=== PATIENT | female | born 1950 | race Caucasian/White ===

== ENCOUNTER 2023-08-02 11:20 | Emergency (ER) | payer MEDICARE ==
[~2023-08-02] VITALS: Ht 157.4 cm; Wt 63.5 kg
== END 2023-08-02 14:49 | disposition left against medical advice (07) ==
LOC: ED 11:20
DX: R05.9 Cough, unspecified (principal); R09.3 Abnormal sputum; R19.7 Diarrhea, unspecified; Z53.21 Procedure and treatment not carried out due to patient leaving prior to being seen by health care provider

== ENCOUNTER 2023-08-02 18:18 | Emergency (ER) | payer MEDICARE | END 2023-08-02 20:54 | disposition left against medical advice (07) | LOC: ED 18:18 | DX: R05.9 Cough, unspecified (principal); R52 Pain, unspecified; Z53.21 Procedure and treatment not carried out due to patient leaving prior to being seen by health care provider ==

== ENCOUNTER 2023-08-06 10:27 | Emergency (ER) | payer MEDICARE ==
[~2023-08-06] VITALS: Ht 154.9 cm; Wt 63.5 kg
[2023-08-06] MEDS ORDERED: AVPAK AZITHROM250 M1 PO (12:32)
== END 2023-08-06 12:04 | disposition home or self-care (01) ==
LOC: ED 10:27
DX: J40 Bronchitis, not specified as acute or chronic (principal); M79.10 Myalgia, unspecified site; Z88.5 Allergy status to narcotic agent; Z98.890 Other specified postprocedural states; M19.90 Unspecified osteoarthritis, unspecified site; Z20.822 Contact with and (suspected) exposure to COVID-19

== ENCOUNTER 2023-11-19 12:42 | Inpatient (IN) | payer MEDICARE ==
[2023-11-19] VITALS (9 sets, daily range): BP systolic 89–118; BP diastolic 47–71
[~2023-11-19] VITALS: Ht 154.9 cm; Wt 64.9 kg
[~2023-11-19 12:42] MED LIST: AVPAK AZITHROM250 M1 PO
[2023-11-19] MEDS ORDERED: SODIUM CHLORIDE 0.9% 1,000 ML IV ONE ×2 (13:20→20:35)
[2023-11-19] MEDS ORDERED: Ondansetron Hydrochloride 4 MG/2 ML VIAL IV ONE (13:20)
[2023-11-19 13:29] LABS: BASO % 0.3 % (0.0-1.0); EOS # 0.1 10*3/uL (0.0-0.4); EOS % 0.8 % (1.0-4.0); HEMATOCRIT 38.6 % (37.0-47.0); LYMPH % 22.9 % (27.0-41.0); MEAN CORPUSCULAR HGB 30.2 pg (27.0-31.0); MEAN CORPUSCULAR HGB CONC 33.2 g/dl (33.0-37.0); MEAN PLATELET VOLUME 9.9 fl (9.6-12.3); MONO # 0.7 10*3/uL (0.1-1.0); MONO % 4.9 % (3.0-9.0); NEUT # 9.4 10*3/uL (2.3-7.9); NEUT % 70.9 % (47.0-73.0); PLATELET COUNT AUTOMATED 250 10*3/uL (130-400); RED BLOOD COUNT 4.24 10*6/uL (4.10-5.10); RED CELL DISTRI WIDTH 14.6 % (0-14.5); WHITE BLOOD COUNT 13.3 10*3/uL (4.8-10.8)
[2023-11-19 13:50] LABS: ALKALINE PHOSPHATASE 92 U/L (46-116); BUN 10 mg/dl (9-23); CHLORIDE 103 mmol/L (98-107); LIPASE 38 U/L (12-53); POTASSIUM 2.6 mmol/L (3.4-5.1); SGPT/ALT 9 U/L (5-49); TOTAL PROTEIN 6.5 gm/dL (6.0-8.0)
[2023-11-19 13:55] LABS: BILIRUBIN Negative (Negative); BLOOD Negative (Negative); CLARITY Clear (Clear); COLOR Yellow (Yellow); GLUCOSE Negative (Negative); KETONE Negative (Negative); LEUKO ESTERASE Negative (Negative); NITRITE Negative (Negative); PH 6.5 (4.5-8.0); UROBILINOGEN 0.2 E.U./dl (0.0-1.0)
[2023-11-19 14:02] LABS: BACTERIA TRACE; WBC 0-2 wbc/hpf (0-5)
[2023-11-19] MEDS ORDERED: POTASSIUM CHLORIDE 20 MEQ TAB PO ONE (14:25)
[2023-11-19] MEDS ORDERED: Piperacillin Sodium/Tazobact 100 ML IV ONE (16:05)
[2023-11-19] MEDS ORDERED: HYDROmorphONE Hydrochloride 0.5 MG/0.5 ML SYRINGE IV ONE (16:05)
[2023-11-19] MEDS ORDERED: SODIUM CHLORIDE 0.9% 1,000 ML IV SCH (16:15)
[2023-11-19] MEDS ORDERED: Ondansetron Hydrochloride 4 MG/2 ML VIAL IV PRN (16:40)
[2023-11-19] MEDS ORDERED: ACETAMINOPHEN 650 MG SUPP R PRN (16:40)
[2023-11-19] MEDS ORDERED: MORPHINE Sulfate 2 MG/ML SYR IV PRN (16:40)
[2023-11-19] MEDS ORDERED: BISACODYL 10 MG SUPP R PRN (16:40)
[2023-11-19] MEDS ORDERED: POTASSIUM CHLORIDE IN WATER 100 ML IV SCH (20:00)
[2023-11-19] MEDS ORDERED: HEPARIN SODIUM 5,000 UNIT/ML VIAL SC SCH (22:00)
[2023-11-19] MEDS ORDERED: Piperacillin Sodium/Tazobact 50 ML IV SCH (22:00)
[2023-11-20 06:49] LABS: BASO # 0.1 10*3/uL (0.0-0.1); BASO % 0.5 % (0.0-1.0); EOS # 0.2 10*3/uL (0.0-0.4); EOS % 1.7 % (1.0-4.0); HEMATOCRIT 35.2 % (37.0-47.0); LYMPH # 2.9 10*3/uL (1.3-4.4); MEAN CELL VOLUME 91.2 fl (81.0-99.0); MEAN CORPUSCULAR HGB 30.3 pg (27.0-31.0); MEAN CORPUSCULAR HGB CONC 33.2 g/dl (33.0-37.0); MONO # 0.4 10*3/uL (0.1-1.0); MONO % 4.4 % (3.0-9.0); NEUT # 6.4 10*3/uL (2.3-7.9); PLATELET COUNT AUTOMATED 235 10*3/uL (130-400); RED BLOOD COUNT 3.86 10*6/uL (4.10-5.10); WHITE BLOOD COUNT 9.9 10*3/uL (4.8-10.8)
[2023-11-20 08:00] VITALS: BP 111/54
[2023-11-20 08:22] LABS: ALKALINE PHOSPHATASE 79 U/L (46-116); BUN 7 mg/dl (9-23); CHLORIDE 110 mmol/L (98-107); CHOLESTEROL 98 mg/dL (<200); LDL CHOLESTEROL 37 mg/dL (9-159); POTASSIUM 3.4 mmol/L (3.4-5.1); TRIGLYCERIDES 123 mg/dl (<150)
[2023-11-20 08:23] LABS: SGPT/ALT < 7 U/L (5-49)
[2023-11-20] MEDS ORDERED: Enoxaparin Sodium 40 MG/0.4 ML SYR SC SCH (10:00)
[2023-11-20 12:00] VITALS: BP 116/61
[2023-11-20] MEDS ORDERED: Ketorolac Tromethamine 15 MG/ML VIAL IV SCH (12:00)
[2023-11-20 16:00] VITALS: BP 114/48
[2023-11-20 20:00] VITALS: BP 111/71
[2023-11-20] MEDS ORDERED: EFFEXOR XR75 M1 PO (20:31)
[2023-11-20] MEDS ORDERED: TEMAZEPAM 15 MG CAP PO PRN (22:00)
[2023-11-21 00:02] VITALS: BP 148/60
[2023-11-21 08:00] VITALS: BP 112/61
[2023-11-21 12:00] VITALS: BP 94/84
[2023-11-21] MEDS ORDERED: VALIUM10 MG PO (13:41)
[2023-11-21] MEDS ORDERED: BEPREVE10 ML OU (13:42)
[2023-11-21] MEDS ORDERED: HYDR12.5C PO (13:44)
[2023-11-21] MEDS ORDERED: [UNRECOGNIZED DRUG - REMARK] PO (13:44)
[2023-11-21] MEDS ORDERED: 24HR ALLERGY REL5 MG PO (13:44)
[2023-11-21] MEDS ORDERED: NORVASC5 MG PO (13:45)
[2023-11-21] MEDS ORDERED: MYRBETRIQ50 M1 PO (13:45)
[2023-11-21] MEDS ORDERED: VALTREX1000 MG PO (13:47)
[2023-11-21] MEDS ORDERED: LIPITOR80 MG PO (13:49)
[2023-11-21] MEDS ORDERED: LYRICA25 M1 PO (13:49)
[2023-11-21] MEDS ORDERED: METOPROLOL SUCC25 M2 PO (13:50)
[2023-11-21] MEDS ORDERED: VENLAFAXINE150 MG PO (13:50)
[2023-11-21] MEDS ORDERED: VAZALORE81 MG PO (13:51)
[2023-11-21 16:00] VITALS: BP 107/58
[2023-11-21] MEDS ORDERED: IOHEXOL 300 MG/ML 100 ML VIAL IV ONE (18:40)
[2023-11-21] MEDS ORDERED: BARIUM SULFATE 2% 450 ML BOT PO SCH (19:00)
[2023-11-21 20:00] VITALS: BP 137/64
[2023-11-21] MEDS ORDERED: Valacyclovir Hydrochloride 500 MG CAP PO SCH (22:00)
[2023-11-21] MEDS ORDERED: DIAZEPAM 5 MG TAB PO SCH (22:00)
[2023-11-22] VITALS: BP 120/70
[2023-11-22 08:00] VITALS: BP 128/82
[2023-11-22] MEDS ORDERED: IOHEXOL 300 MG/ML 100 ML VIAL IV ONE (09:05)
[2023-11-22] MEDS ORDERED: MORPHINE Sulfate 2 MG/ML SYR IV ONE (09:25)
[2023-11-22] MEDS ORDERED: Ondansetron Hydrochloride 4 MG/2 ML VIAL IV ONE (09:40)
[2023-11-22] MEDS ORDERED: BARIUM SULFATE 2% 450 ML BOT PO SCH (10:00)
[2023-11-22] MEDS ORDERED: ATORVASTATIN CALCIUM 80 MG TAB PO SCH (10:00)
[2023-11-22] MEDS ORDERED: METOPROLOL SUCCINATE XR 25 MG TAB PO SCH (10:00)
[2023-11-22] MEDS ORDERED: PREGABALIN 25 MG CAP PO SCH (10:00)
[2023-11-22] MEDS ORDERED: Venlafaxine Hydrochloride 75 MG CAP PO SCH (10:00)
[2023-11-22 12:00] VITALS: BP 127/89
[2023-11-22] MEDS ORDERED: ACETAMINOPHEN 325 MG TAB PO ONE (15:35)
[2023-11-22 15:54] VITALS: BP 135/77
[2023-11-22 20:00] VITALS: BP 128/82
[2023-11-23] VITALS: BP 144/82
[2023-11-23 06:29] LABS: BASO % 0.7 % (0.0-1.0); EOS # 0.2 10*3/uL (0.0-0.4); HEMATOCRIT 36.4 % (37.0-47.0); LYMPH # 2.7 10*3/uL (1.3-4.4); MEAN CELL VOLUME 90.5 fl (81.0-99.0); MEAN CORPUSCULAR HGB 30.1 pg (27.0-31.0); MEAN CORPUSCULAR HGB CONC 33.2 g/dl (33.0-37.0); MEAN PLATELET VOLUME 10.3 fl (9.6-12.3); MONO # 0.7 10*3/uL (0.1-1.0); MONO % 10.9 % (3.0-9.0); NEUT # 2.5 10*3/uL (2.3-7.9); NEUT % 40.9 % (47.0-73.0); PLATELET COUNT AUTOMATED 285 10*3/uL (130-400); RED BLOOD COUNT 4.02 10*6/uL (4.10-5.10); RED CELL DISTRI WIDTH 14.6 % (0-14.5)
[2023-11-23 06:40] LABS: BUN 6 mg/dl (9-23); CHLORIDE 106 mmol/L (98-107); POTASSIUM 3.5 mmol/L (3.4-5.1)
[2023-11-23 08:00] VITALS: BP 99/57
[2023-11-23 08:49] VITALS: BP 145/77
[2023-11-23] MEDS ORDERED: PSYLLIUM 1 PCK PACKET PO SCH (10:00)
[2023-11-23 12:00] VITALS: BP 121/66
[2023-11-23] MEDS ORDERED: METAMUCIL FIBE3.4 GM PO (13:55)
[2023-11-23] MEDS ORDERED: DIAZEPAM5 MG PO (13:55)
[2023-11-23] MEDS ORDERED: METRONIDAZOLE500 M1 PO (13:57)
[2023-11-23] MEDS ORDERED: LEVOFLOXACIN500 MG PO (13:57)
[2023-11-23 15:53] VITALS: BP 118/72
[2023-11-23 20:00] VITALS: BP 115/66
[2023-11-24] VITALS: BP 131/63
[2023-11-24 07:57] VITALS: BP 142/72
[2023-11-24 11:51] VITALS: BP 117/51
[2023-11-24 15:24] VITALS: BP 140/67
[2023-11-24 20:00] VITALS: BP 147/76
== END 2023-11-25 06:57 | disposition home or self-care (01) | DRG 872 ==
LOC: ED 12:42 → EDHOLD 16:17 → 5E 16:17
PROVIDERS: Internal Medicine; Registered Nurse; ADMIT Internal Medicine; ATTEND Internal Medicine
DX: A41.9 Sepsis, unspecified organism (principal); K57.20 Diverticulitis of large intestine with perforation and abscess without bleeding; E44.0 Moderate protein-calorie malnutrition; K52.9 Noninfective gastroenteritis and colitis, unspecified; J44.9 Chronic obstructive pulmonary disease, unspecified; E87.6 Hypokalemia; R73.9 Hyperglycemia, unspecified; K66.8 Other specified disorders of peritoneum; F41.9 Anxiety disorder, unspecified; Z88.6 Allergy status to analgesic agent; I25.2 Old myocardial infarction; Z87.891 Personal history of nicotine dependence; Z80.1 Family history of malignant neoplasm of trachea, bronchus and lung; Z68.27 Body mass index [BMI] 27.0-27.9, adult